=== PATIENT | male | born 1955 | race Caucasian/White ===

== ENCOUNTER 2019-10-31 11:57 | Emergency (ER) | payer SELFPAY ==
[2019-10-31 12:07] VITALS: BP 156/83
[2019-10-31] MEDS ORDERED: SODIUM CHLORIDE 0.9% 500 ML 500 ML IV ONE (12:09)
[2019-10-31] MEDS ORDERED: ACETAMINOPHEN 500 MG TAB PO STA (12:09)
--- NOTE | 2019-10-31 13:15 | XRay Report ---
CHEST 1 VIEW INDICATION: possible Sepsis COMPARISON: None FINDINGS: Support devices: None Heart: Normal Lungs/Pleura: No acute pulmonary or pleural findings. IMPRESSION: 1. No acute disease. Signer Name: Bunny Vasquez MD Signed: 10/31/2019 1:11 PM Workstation Name: [id number]
[2019-10-31 15:29] LABS: Bilirubin,Urine NEG (Negative); Blood,Urine MOD (Negative); Color,Urine Yellow (Yellow); Mucus,Urine 1+ /HPF; Urobilinogen,Urine < 2.0 mg/dL (<2.0)
== END 2019-10-31 14:39 | disposition left against medical advice (07) ==
LOC: ED 11:57
DX: R05 Cough (principal); R50.9 Fever, unspecified; Z53.21 Procedure and treatment not carried out due to patient leaving prior to being seen by health care provider
CPT/HCPCS: 71045; 81001; 87086; 93005; 93010

== ENCOUNTER 2021-01-14 12:13 | Emergency (ER) | payer SELFPAY ==
[2021-01-14] MEDS ORDERED: IPRATROPIUM/ALBUTEROL SULFATE 3 ML AMPUL.NEB IH ONE (12:59)
[2021-01-14] MEDS ORDERED: methylPREDNISolone Sod Succinate 125 MG/2 ML INJ IM ONE (12:59)
--- NOTE | 2021-01-14 12:59 | Event Note ---
ED Screening Note ED Screening Note: SENT BY CLINIC FOR ABNORMAL BS WHEEZING SMOKER COPD POOR [place] This initial assessment/diagnostic orders/clinical plan/treatment(s) is/are subject to change based on patients health status, clinical progression and re- assessment by fellow clinical providers in the ED. Further treatment and workup at subsequent clinical providers discretion. Patient/guardian urged not to elope from the ED as their condition may be serious if not clinically assessed and managed. Initial orders include: DUONEB/SOLUMEDROL XRAY RO PNA
--- NOTE | 2021-01-14 13:01 | Emergency Department Report ---
Minor Respiratory - HPI Stated Complaint: REFERRAL FROM DOCTOR Time Seen by Provider: 01/14/21 12:59 Duration: Today Pain Location: Chest Severity: mild Minor Respiratory: Yes Able to Tolerate Fluids, Yes Cough, Yes Shortness of Breath, No Rhinorrhea, No Sore Throat, No Ear Pain, No Sick Contacts, No Hemoptysis, No Chest Pain, No Fever Other History: Patient is a 65-year-old male that was sent to us from his PCP for adventitious breath sounds. Patient smokes. I suspect he has underlying COPD that has been undiagnosed. He denies fever or chills. Patient denies chest pain. Patient denies shortness of breath . He is wheezing on exam. Patient denies exposure to Covid. He denies immunization to Covid. ED Review of Systems ROS: Stated complaint: REFERRAL FROM DOCTOR Other details as noted in HPI Comment: All other systems reviewed and negative ED Past Medical Hx - Past Medical History Previous Medical History?: Yes Additional medical history: COPD - Family History Family history: no significant - Social History Smoking Status: Current Some Day Smoker Substance Use Type: None - Medications Home Medications: Home Medications Medication Instructions Recorded Confirmed Last Taken Type Albuterol Mdi (or & Nicu Only) 2 puff IH QID PRN #1 inhalation 01/14/21 Unknown Rx [ProAir HFA Inhaler] Azithromycin [Zithromax Z-FRANTZ] 250 mg PO DAILY #6 tablet 01/14/21 Unknown Rx Cetirizine HCl [ZyrTEC] 10 mg PO DAILY #30 capsule 01/14/21 Unknown Rx Fluticasone [Flonase] 1 spray NS QDAY #1 bottle 01/14/21 Unknown Rx predniSONE [Deltasone] 20 mg PO DAILY #5 tablet 01/14/21 Unknown Rx Minor Respiratory Exam - Exam General: Vital signs noted. No distress. Alert and acting appropriately. HEENT: Yes Moist Mucous Membranes, No Pharyngeal Erythema, No Pharyngeal Exudates, No Rhinorrhea, No Conjuctival Injection, No Frontal Tenderness, No Maxillary Tenderness Ear: Neither TM Bulge, Neither TM Erythema, Neither EAC Pain, Neither EAC Discharge Neck: Yes Supple, No Adenopathy Lungs: Yes Good Air Exchange, Yes Wheezes (B), No Ronchi, No Stridor, No Cough, No Labored Respirations, No Retractions, No Use of Accessory Muscles, No Other Abnormal Lung Sounds Heart: Yes Regular, No Murmur Abdomen: Yes Normal Bowel Sounds, No Tenderness, No Peritoneal Signs Skin: No Rash, No Edema Neurologic: Alert and oriented, no deficits. Musculoskeletal: Unremarkable. ED Medical Decision Making - Radiology Data Radiology results: report reviewed, image reviewed NAP - Medical Decision Making DUONEB AND SOLUMEDROL XRAY NAP NO EVIDENCE COVID19 Decreased wheezing after DuoNeb. Patient being discharged home with discharge plan of care. Patient verbalizes understanding of medications as well as follow-up. Patient ambulatory, not hypoxic and in no acute distress on discharge Vital Signs 01/14/21 13:49 Respiratory 18 Rate Vital signs are normal as documented by the RN. Saturation on room air 100%. - Differential Diagnosis RO PNA Critical care attestation.: If time is entered above; I have spent that time in minutes in the direct care of this critically ill patient, excluding procedure time. ED Disposition Clinical Impression: Wheezing, COPD suggested by initial evaluation, URI (upper respiratory infection) Disposition: TO HOME OR SELFCARE Is pt being admited?: No Does the pt Need Aspirin: No Condition: Stable Instructions: Chronic Obstructive Pulmonary Disease Exacerbation, [id number] Additional Instructions: MEDS ORDERED TODAY FOLLOW UP WITH PCP IN 24 HOURS TO BE SURE YOU ARE IMPROVING DO NOT SMOKE Prescriptions: predniSONE [Deltasone] 20 mg PO DAILY #5 tablet Fluticasone [Flonase] 1 spray NS QDAY #1 bottle Albuterol Mdi (or & Nicu Only) [ProAir HFA Inhaler] 2 puff IH QID PRN #1 inhalation PRN Reason: Shortness Of Breath Azithromycin [Zithromax Z-FRANTZ] 250 mg PO DAILY #6 tablet Cetirizine HCl [ZyrTEC] 10 mg PO DAILY #30 capsule Referrals: ALLAN BYRNES MD [Staff Physician] - 3-5 Days Time of Disposition: 13:23
--- NOTE | 2021-01-14 13:23 | XRay Report ---
CHEST 2 VIEWS INDICATION: SOB. COMPARISON: 10/31/2019 FINDINGS: Support devices: None. Heart: Within normal limits. Lungs/pleura: No acute air space or interstitial disease. No pneumothorax. Additional findings: None. IMPRESSION: No acute findings. Signer Name: Dc Edwards Jr, MD Signed: 01/14/2021 1:19 PM Workstation Name: [id number]
[2021-01-14] MEDS ORDERED: IBUPROFEN 800 MG TAB PO ONE (13:24)
== END 2021-01-14 14:21 | disposition home or self-care (01) ==
LOC: ED 12:13
DX: J44.9 Chronic obstructive pulmonary disease, unspecified (principal); F17.200 Nicotine dependence, unspecified, uncomplicated; Z79.899 Other long term (current) drug therapy
CPT/HCPCS: 71046; 94640; 96372; 99283; J2930; 94644